=== PATIENT | male | born 1940 | race Caucasian/White ===

== ENCOUNTER 2016-07-26 14:35 | Observation (INO) | payer MEDICARE, OTHER ==
[2016-07-26 15:01] LABS: Hematocrit 33.6 % (42.0-52.0); Hemoglobin 11.4 gm/dL (13.5-18.0); Mean Cell Volume 96.8 fl (78-100); Mean Corpuscular Hemoglobin 32.9 pg (27-31); Mean Corpuscular Hgb Conc 33.9 g/dl (32-36); Mean Platelet Volume 9.6 fl (6.0-9.5); Neutrophil # 2.8 K/mm3 (1.3-6.0); Neutrophil % 55.7 % (42-75.0); Platelet Count 229 K/mm3 (150-450); Red Blood Count 3.47 M/mm3 (4.7-6.0); Red Cell Distribution Width 13.2 % (11.5-14.0); White Blood Count 5.1 K/mm3 (4.0-10.5)
[2016-07-26 15:11] LABS: Albumin * 3.2 gm/dl (3.4-5.0); Anion Gap 19.7 mmol/L (6.8-13.8); BUN/Creatinine Ratio 14.1 (9.0-21.6); Bilirubin, Total 0.3 mg/dL (0.0-1.1); Ca. Corrected For Albumin 9.5 mg/dL (8.4-10.2); Calcium * 9.2 mg/dL (7.9-10.9); Carbon Dioxide 19.5 mmol/L (24-32.6); Potassium 5.2 mmol/L (3.4-4.6); Total Protein 6.3 gm/dL (6.2-8.2)
[2016-07-26] MEDS: NORMAL SALINE 1,000 ML IV ONE ×2 (15:12→17:05)
[2016-07-26 15:14] LABS: Prothrombin Time (Patient) 10.9 Seconds (9.4-11.4)
[2016-07-26 15:15] LABS: INR 1.05 INR (0.90-1.10); Partial Thrombolplastin Time 20.7 Seconds (24-32)
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
--- OUTSIDE RECORDS SUMMARY | 2016-07-26 15:22 | XMS REPORT | Continuity of Care Document ---
:1940 Author Organization [facility] [place] [address] Care Team Providers Name Role Phone Unavailable Primary Care Provider Unavailable Source Comments This disclosure is being made pursuant to the [employer] program and maynot contain all information available regarding this patient.[facility] Active Allergies and Adverse Reactions Not on File Current Medications Be aware that medications may not be up to date as of this document. Alwaysverify current medications with the patient. Not on file Active Problems Not on file Social History Tobacco Use Types Packs/Day Years Used Date Never Assessed Plan of Care Health Maintenance Due Date Last Done Comments Retired-Pertussis Vaccine Adult 1961 Retired-Tetanus Vaccine Adult 1959 Colonoscopy 1992 Well Adult Visit 1992 Zoster Vaccine 60+ 2002 Retired-Pneumococcal 23 Vaccine-65+ yo 11/15/2007 Retired-INFLUENZA VACCINE 10/06/2014 Results from Last 3 Months Not on file
--- OUTSIDE RECORDS SUMMARY | 2016-07-26 15:22 | XMS REPORT | Summary of Care ---
:1940 Author Organization [facility] Address [address] [place] [address]- Care Team Providers Name Role Phone Elio Philip Primary Care Physician Encounter Date(s): 03/31/16 - 03/31/[address] [address] Discharge Disposition: Discharged to Home or Self Care Attending Physician: Solis Arreola MD Admitting Physician: Solis Arreola MD Vital Signs No data available for this section Problem List Condition Effective Dates Status Health Status Informant Cyst of kidney, acquired(Confirmed) Active Acute renal failure(Confirmed) Active Aphasia(Confirmed) Active patient Acquired atrophy of kidney(Confirmed) Active Bradycardia(Confirmed) Active CKD stage 3(Confirmed) Active Coronary artery disease(Confirmed) Active CVA - Cerebrovascular Active accident(Confirmed) Diabetes mellitus type 2(Confirmed) Active Epilepsy(Confirmed) Active Hyperkalemia(Confirmed) Active Hyperlipidemia(Confirmed) Active Hypertension(Confirmed) Active Melanoma(Confirmed) Active Memory deficit(Confirmed) Active patient Moyamoya syndrome(Confirmed) Active Nephrolithiasis(Confirmed) Active COURTNEY - Obstructive sleep apnea - on Active CPAP - NOS(Confirmed) Proteinuria(Confirmed) Active Sleep apnea(Confirmed) Active TIA(Confirmed) Active Allergies, Adverse Reactions, Alerts Substance Reaction Severity Status cyclobenzaprine Unknown Severe Active diltiazem Renal [id number] 19:27:43<$> Severe Active LORazepam Unknown Severe Active metoprolol Renal -[id number] 19:27:43<$> Severe Active Medications amLODIPine 5 mg oral tablet 1 tab(s), Oral, Daily, 0 Refill(s) Special Instructions: patient not taking any longer Start Date: 05/15/13 Stop Date: 12/01/13 Status: Discontinuedaspirin 81 mg oral tablet 1 tab(s), Oral, Daily, 0 Refill(s) Start Date: 05/15/13 Stop Date: 12/04/13 Status: Completedchlorhexidine 0.12% mucous membrane liquid 15 mL, Oral, BID, swish and spit; do not swallow, # 480 mL, 0 Refill(s) Special Instructions: not taking anymore Start Date: 05/30/13 Stop Date: 12/01/13 Status: Discontinuedcholecalciferol 1000 intl units oral tablet 1 tab(s), Oral, Daily, # 30 tab(s), 0 Refill(s), Start Date: 12/14/15 10:40:00 [employer]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 Start Date: 12/14/15 Status: Orderedcholecalciferol 2000 intl units oral capsule 1 cap(s), Oral, Daily, # 60 cap(s), 0 Refill(s) Start Date: 05/15/13 Stop Date: 12/14/15 Status: Completedciprofloxacin 500 mg oral tablet, extended release 1 tab(s), Oral, BID, # 20 tab(s), 0 Refill(s), Pharmacy: [place], [place] Start Date: 10/21/13 Stop Date: 12/04/13 Status: Completedcitalopram 20 mg oral tablet 1 tab(s), Oral, HS, # 30 tab(s), 0 Refill(s) Start Date: 05/28/13 Status: Orderedcitalopram 40 mg oral tablet 1.5 tab(s), Oral, Daily, # 30 tab(s), 0 Refill(s) Start Date: 05/15/13 Stop Date: 12/04/13 Status: Completeddocusate sodium 100 mg oral capsule 1 cap(s), Oral, BID, PRN for constipation, # 20 cap(s), 0 Refill(s) Start Date: 05/15/13 Status: Orderedenalapril 5 mg oral tablet 1 tab(s), Oral, BID, # 30 tab(s), 0 Refill(s) Special Instructions: patient not taking any longer Start Date: 05/15/13 Stop Date: 12/01/13 Status: Discontinuedfamotidine 20 mg oral tablet 1 tab(s), Oral, BID, # 180 tab(s), 0 Refill(s) Start Date: 05/15/13 Status: OrderedFish Oil 1000 mg oral capsule 1 cap(s), Oral, Daily, # 60 cap(s), 0 Refill(s) Start Date: 05/15/13 Status: OrderedFlagyl 500 mg oral tablet 1 tab(s), Oral, every 8 hours, # 30 tab(s), 0 Refill(s), Pharmacy: [place], [place] Start Date: 10/21/13 Stop Date: 12/04/13 Status: CompletedFlomax 0.4 mg oral capsule 1 cap(s), Oral, Daily, # 30 cap(s), 11 Refill(s), Start Date: 06/17/14 13:09:00 CDT, Pharmacy: [place], [place] Start Date: 06/17/14 Stop Date: 05/13/15 Status: CompletedFlomax 0.4 mg oral capsule 1 cap(s), Oral, Daily, # 30 cap(s), 11 Refill(s), Start Date: 05/13/15 11:59:50 CDT, Pharmacy: [place], [place] Start Date: 05/13/15 Status: Orderedgemfibrozil 600 mg oral tablet 1 tab(s), Oral, BID, # 60 tab(s), 0 Refill(s) Start Date: 05/15/13 Status: OrderedHYDROcodone-acetaminophen 10 mg-300 mg/15 mL oral liquid 7.5 mL, Oral, q4hr, PRN for pain, # 240 mL, 0 Refill(s) Start Date: 06/11/13 Stop Date: 09/11/13 Status: CompletedHYDROcodone-acetaminophen 10 mg-300 mg/15 mL oral liquid 7.5 mL, Oral, q4hr, PRN for pain, # 240 mL, 0 Refill(s) Start Date: 05/26/13 Stop Date: 06/11/13 Status: CompletedJanuvia 100 mg oral tablet 1 tab(s), Oral, Daily, # 30 tab(s), 0 Refill(s) Start Date: 05/15/13 Status: OrderedJanuvia 100 mg oral tablet 1 tab(s), Oral, Daily Start Date: 05/31/13 Stop Date: 12/04/13 Status: CompletedlamoTRIgine 25 mg oral tablet 2 tab(s), Oral, BID, # 60 tab(s), 0 Refill(s), Start Date: 12/04/13 11:31:00 CDT Start Date: 12/04/13 Status: OrderedlevETIRAcetam 250 mg oral tablet 1 tab(s), Oral, BID, # 180 tab(s), 0 Refill(s), Start Date: 12/14/15 10:42:00 [employer]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 Start Date: 12/14/15 Status: OrderedlevETIRAcetam 750 mg oral tablet 1 tab(s), Oral, BID, # 180 tab(s), 0 Refill(s), Start Date: 12/01/13 6:48:00 CDT Start Date: 12/01/13 Stop Date: 12/14/15 Status: Completedlisinopril 2.5 mg oral tablet 1 tab(s), Oral, HS, # 30 tab(s), 11 Refill(s), Start Date: 06/30/15 11:27:25 CDT , Pharmacy: [place], [place] Start Date: 06/30/15 Status: Orderedlisinopril 2.5 mg oral tablet 1 tab(s), Oral, HS, # 30 tab(s), 6 Refill(s), Start Date: 12/04/13 14:41:00 CDT , Pharmacy: [place], [place] Start Date: 12/04/13 Stop Date: 05/19/14 Status: Completedlisinopril 2.5 mg oral tablet 1 tab(s), Oral, HS, # 30 tab(s), 6 Refill(s), Start Date: 12/24/14 8:30:46 [employer] MAIN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, Pharmacy: [facility], [place] Start Date: 12/24/14 Stop Date: 06/30/15 Status: Completedlisinopril 2.5 mg oral tablet 1 tab(s), Oral, HS, # 30 tab(s), 6 Refill(s), Start Date: 05/19/14 15:04:24 CDT , Pharmacy: [place], [place] Start Date: 05/19/14 Stop Date: 12/24/14 Status: CompletedMagic Mouthwash (1:1:1:1 viscous lidocaine:Benadryl:Maalox: nystatin) 0 Refill(s) Start Date: 05/30/13 Stop Date: 12/04/13 Status: Discontinuedmultivitamin 1 tab, Daily, with food, 0 Refill(s) Special Instructions: with food Start Date: 05/15/13 Status: OrderedMyrbetriq 25 mg oral tablet, extended release 1 tab(s), Oral, Daily, # 30 tab(s), 11 Refill(s), Start Date: 12/10/14 11:42:00 [employer]IN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, 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[place], [place] Start Date: 12/10/14 Stop Date: 12/24/14 Status: DiscontinuedMyrbetriq 50 mg oral tablet, extended release 1 tab(s), Oral, Daily, # 30 tab(s), 0 Refill(s), Start Date: 12/24/14 14:26:00 [employer] E[employer]MENT MAIN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, Pharmacy: [place], [place] Start Date: 12/24/14 Stop Date: 01/27/15 Status: CompletedMyrbetriq 50 mg oral tablet, extended release 1 tab(s), Oral, Daily, # 30 tab(s), 11 Refill(s), Start Date: 01/27/15 10:18:36 [employer]MENT MAIN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, Pharmacy: [place], [place] Start Date: 01/27/15 Status: OrderedNeutraSal packet(s), Oral, QID, 0 Refill(s) Start Date: 05/30/13 Stop Date: 12/04/13 Status: CompletedPlavix 75 mg oral tablet 1 tab(s), Oral, Daily, # 30 tab(s), 0 Refill(s) Start Date: 05/15/13 Status: Orderedpyridostigmine 60 mg oral tablet 1 tab(s), Oral, Daily, 0 Refill(s), Start Date: 06/08/14 16:36:00 CDT Start Date: 06/08/14 Status: Orderedsimvastatin 80 mg oral tablet 1 tab(s), Oral, HS, # 30 tab(s), 0 Refill(s) Start Date: 05/15/13 Status: OrderedTums 500 1 tab, Chewed, Daily, 0 Refill(s) Start Date: 05/15/13 Status: OrderedZetia 10 mg oral tablet 1 tab(s), Oral, Daily, # 30 tab(s), 0 Refill(s) Start Date: 05/15/13 Status: Ordered Results Patient Viewable Results Most recent to oldest [Reference Range]: 1 Creatinine Lvl [0.50-1.20 mg/dL] 2.48 mg/dL *HI* (03/31/16 9:25 AM) eGFR AA [>=60] 31 *LOW* (03/31/16 9:25 AM) eGFR ROBERT [>=60] 26 *LOW* (03/31/16 9:25 AM) PSA Screen [0.0-4.0 ng/mL] 2.3 ng/mL (03/31/16 9:25 AM) Estimated Creatinine Clearance 33.81 mL/min (03/31/16 9:58 AM) UA Color Yellow *NA* (03/31/16 9:35 AM) Urine Clarity Clear *NA* (03/31/16 9:35 AM) Specific [place] [1.000-1.060] 1.014 (03/31/16 9:35 AM) Urine pH [5-8] 5 (03/31/16 9:35 AM) Ketones Negative (03/31/16 9:35 AM) Bilirubin [Negative] Negative (03/31/16 9:35 AM) Urine Protein [Negative] 3+ *ABN* (03/31/16 9:35 AM) Glucose [Negative] 1+ *ABN* (03/31/16 9:35 AM) Urine HGB [Negative] Negative (03/31/16 9:35 AM) Urobilinogen <2.0 *NA* (03/31/16 9:35 AM) Nitrite [Negative] Negative (03/31/16 9:35 AM) Leuk Esterase [Negative] Negative (03/31/16 9:35 AM) UA Ascorbic Acid [Negative] Negative (03/31/16 9:35 AM) Urine WBC [0-5] 0-5 (03/31/16 9:35 AM) Urine RBC [0-2] 0-2 (03/31/16 9:35 AM) Squamous Epi [0-5] 0-5 (03/31/16 9:35 AM) Mucus Trace (03/31/16 9:35 AM) Immunizations Vaccine Date Refusal Reason influenza virus vaccine, inactivated 11/05/14 influenza virus vaccine, inactivated 11/25/12 pneumococcal 7-valent vaccine 11/25/12 Procedures Procedure Date Related Diagnosis Body Site UDS - Urodynamics 10/26/14 Colonoscopy1 12/01/13 Insertion Percutaneous Gastronomy Tube2 05/30/13 Bypass-temporal artery 07/2002 Temporal artery biopsy 07/2002 Ankle joint operations3 Appendectomy Colonoscopy Neck surgery Operation on neck Operative procedure on shoulder4 Surgery-bilateral shoulder Vasectomy 1auto-populated from documented surgical [id number] from documented surgical [id number] Social History No data available for this section Assessment and Plan No data available for this section
--- OUTSIDE RECORDS SUMMARY | 2016-07-26 16:22 | XMS REPORT | Continuity of Care Document ---
:1940 Author Organization [facility] [place] [address] Care Team Providers Name Role Phone Unavailable Primary Care Provider Unavailable Source Comments This disclosure is being made pursuant to the [employer] program and maynot contain all information available regarding this patient.[facility] Active Allergies and Adverse Reactions Not on [...]
[2016-07-26 16:29] LABS: Troponin I Less than 0.017 ng/ml (0.00-0.10)
[2016-07-26 16:31] LABS: BNP * 139 pg/mL (5-350)
[2016-07-26] MEDS ORDERED: POLYETHYLENE GLYCOL 3350 119 GM BTL PO PRN (17:45)
[2016-07-26] MEDS ORDERED: TAMSULOSIN HCL 0.4 MG CAP.SR.24H PO SCH (19:00)
[2016-07-26] MEDS: ACETAMINOPHEN 325 MG TABLET PO PRN (19:31)
[2016-07-26] MEDS ORDERED: SIMVASTATIN 40 MG TABLET PO SCH (21:00)
[2016-07-26] MEDS: FAMOTIDINE 20 MG TABLET PO SCH (21:11)
[2016-07-26] MEDS: lamoTRIgine 100 MG TABLET PO SCH (21:11)
[2016-07-26] MEDS: GEMFIBROZIL 600 MG TABLET PO SCH (21:15)
[2016-07-26] MEDS ORDERED: NORMAL SALINE 1,000 ML IV PRN (22:36)
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
[2016-07-26] MEDS ORDERED: ENOXAPARIN SODIUM 40 MG/0.4 ML SYRG SC SCH (22:45)
[2016-07-26] MEDS ORDERED: ENOXAPARIN SODIUM 100 MG/ML SYRG SC ONE (22:55)
[2016-07-26] MEDS: levETIRAcetam 500 MG TABLET PO SCH (23:01)
[2016-07-27 06:06] LABS: Hematocrit 26.1 % (42.0-52.0); Hemoglobin 8.7 gm/dL (13.5-18.0); Mean Cell Volume 99.6 fl (78-100); Mean Corpuscular Hemoglobin 33.2 pg (27-31); Mean Corpuscular Hgb Conc 33.3 g/dl (32-36); Mean Platelet Volume 10.1 fl (6.0-9.5); Neutrophil # 7.2 K/mm3 (1.3-6.0); Neutrophil % 88.1 % (42-75.0); Platelet Count 160 K/mm3 (150-450); Red Blood Count 2.62 M/mm3 (4.7-6.0); Red Cell Distribution Width 13.2 % (11.5-14.0); White Blood Count 8.2 K/mm3 (4.0-10.5)
[2016-07-27 06:26] LABS: Albumin * 2.9 gm/dl (3.4-5.0); Anion Gap 17.1 mmol/L (6.8-13.8); BUN/Creatinine Ratio 15.9 (9.0-21.6); Bilirubin, Total 0.2 mg/dL (0.0-1.1); Ca. Corrected For Albumin 9.1 mg/dL (8.4-10.2); Calcium * 8.5 mg/dL (7.9-10.9); Carbon Dioxide 22.5 mmol/L (24-32.6); Potassium 5.6 mmol/L (3.4-4.6); Total Protein 5.7 gm/dL (6.2-8.2)
[2016-07-27] MEDS: ACETAMINOPHEN 325 MG TABLET PO PRN ×2 (06:39→14:07)
[2016-07-27] MEDS ORDERED: LEVOTHYROXINE SODIUM 50 MCG TABLET PO SCH (07:00)
[2016-07-27] MEDS ORDERED: FUROSEMIDE 10 MG/ML VIAL IV STA (07:46)
[2016-07-27 08:08] LABS: Hematocrit 26.8 % (42.0-52.0); Mean Cell Volume 99.6 fl (78-100); Mean Corpuscular Hemoglobin 33.5 pg (27-31); Mean Corpuscular Hgb Conc 33.6 g/dl (32-36); Mean Platelet Volume 9.3 fl (6.0-9.5); Neutrophil # 8.5 K/mm3 (1.3-6.0); Neutrophil % 87.1 % (42-75.0); Platelet Count 174 K/mm3 (150-450); Red Blood Count 2.69 M/mm3 (4.7-6.0); Red Cell Distribution Width 13.3 % (11.5-14.0); White Blood Count 9.8 K/mm3 (4.0-10.5)
[2016-07-27 08:29] LABS: Anion Gap 16.5 mmol/L (6.8-13.8); BUN/Creatinine Ratio 15.3 (9.0-21.6); Calcium * 8.7 mg/dL (7.9-10.9); Carbon Dioxide 20.5 mmol/L (24-32.6); Estimated Creat Clear 23.8
[2016-07-27] MEDS ORDERED: CLOPIDOGREL BISULFATE 75 MG TABLET PO SCH (09:00)
[2016-07-27] MEDS ORDERED: sitaGLIPtin PHOSPHATE 50 MG TABLET PO SCH (09:00)
[2016-07-27] MEDS ORDERED: CITALOPRAM HYDROBROMIDE 20 MG TABLET PO SCH (09:00)
[2016-07-27] MEDS ORDERED: EZETIMIBE 10 MG TABLET PO SCH (09:00)
[2016-07-27] MEDS ORDERED: CHOLECALCIFEROL 1,000 UNIT CAPSULE PO SCH (09:00)
[2016-07-27] MEDS ORDERED: LISINOPRIL 2.5 MG TABLET PO SCH (09:00)
[2016-07-27] MEDS ORDERED: PYRIDOSTIGMINE BROMIDE 60 MG TABLET PO SCH (09:00)
[2016-07-27] MEDS ORDERED: MULTIVITAMINS 1 CAP CAPSULE PO SCH (09:00)
[2016-07-27] MEDS: levETIRAcetam 500 MG TABLET PO SCH (09:02)
[2016-07-27] MEDS: lamoTRIgine 100 MG TABLET PO SCH ×3 (09:02→12:09)
[2016-07-27] MEDS: FAMOTIDINE 20 MG TABLET PO SCH (09:03)
[2016-07-27] MEDS: GEMFIBROZIL 600 MG TABLET PO SCH (09:42)
[2016-07-27 10:31] LABS: Urine Bilirubin Negative (NEGATIVE); Urine Ketone Negative (NEGATIVE); Urine Nitrite Negative (NEGATIVE); Urine Protein >=300 mg/dL (NEGATIVE); Urine Specific Gravity >=1.030 SP.GR. (1.005-1.030); Urine Urobilinogen Normal (NORMAL); Urine pH 5.5 pH (5.0-7.0)
[2016-07-27 10:51] LABS: Urine Amorphous Sediment Few - 1+ (NONE-FEW); Urine Appearance Slightly Cloudy; Urine Bacteria None Seen; Urine Blood 10 /ul (NEGATIVE); Urine Color Yellow; Urine RBC 0-5 /hpf (0-5); Urine WBC None Seen /hpf (0-5)
[2016-07-27] MEDS ORDERED: ASPIRIN 81 MG TAB.CHEW PO STA (11:44)
[2016-07-27] MEDS ORDERED: INSULIN LISPRO 100 UNITS/ML VIAL SC SCH (12:00)
[2016-07-27 12:11] LABS: Hemoglobin 8.2 gm/dL (13.5-18.0)
--- NOTE | 2016-07-27 12:38 | PN ---
Progess Note - Interim Narrative: 07/27/16 12:18 About 1145 today had a 60 second episode of right sided weakness which has now completely passed. I have spoken to the transer center at [facility], as I now think he needs to be transferred for what I interpret as a TIA at 1145. Events yesterday I interpret as seizures. I spoke with Dr. Vogt this morning by phone, who related his creatinine today and yesterday is similar to others this year at Dr. Vogt' office. We did give Mr Shah extra baby aspirin after his TIA today.
[2016-07-27 14:52] VITALS: BP 110/47
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
[2016-07-27 16:03] LABS: Hematocrit 23.5 % (42.0-52.0)
== END 2016-07-27 16:45 | disposition short-term general hospital (02) ==
LOC: ER 14:35 → MS 16:17
PROVIDERS: ADMIT Allergy & Immunology; ATTEND Allergy & Immunology
DX: G45.9 Transient cerebral ischemic attack, unspecified (principal); G40.909 Epilepsy, unspecified, not intractable, without status epilepticus; E11.22 Type 2 diabetes mellitus with diabetic chronic kidney disease; I12.9 Hypertensive chronic kidney disease with stage 1 through stage 4 chronic kidney disease, or unspecified chronic kidney disease; N18.4 Chronic kidney disease, stage 4 (severe); I67.5 Moyamoya disease; I10 Essential (primary) hypertension; Z87.891 Personal history of nicotine dependence; I50.32 Chronic diastolic (congestive) heart failure; F03.90 Unspecified dementia, unspecified severity, without behavioral disturbance, psychotic disturbance, mood disturbance, and anxiety; E78.5 Hyperlipidemia, unspecified; G47.33 Obstructive sleep apnea (adult) (pediatric); I95.0 Idiopathic hypotension; D64.9 Anemia, unspecified; R07.89 Other chest pain; M25.561 Pain in right knee; V43.52XA Car driver injured in collision with other type car in traffic accident, initial encounter; Y92.414 Local residential or business street as the place of occurrence of the external cause
CPT/HCPCS: 36415; 70450; 71010; 73562; 80048; 80053; 81001; 83880; 84484; 85014; 85018; 85025; 85610; 85652; 85730; 93005; 94660; 96372; 96374; 97110; 97116; 97163; 97166; 99283; G0378; G8981; G8982; G8983; G8987; G8988; G8989

== ENCOUNTER 2016-08-04 22:36 | Emergency (ER) | payer MEDICARE, OTHER ==
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
[2016-08-04 23:07] LABS: Mean Cell Volume 97.1 fl (78-100); Mean Corpuscular Hemoglobin 32.7 pg (27-31); Mean Corpuscular Hgb Conc 33.6 g/dl (32-36); Mean Platelet Volume 9.2 fl (6.0-9.5); Platelet Count 296 K/mm3 (150-450); Red Blood Count 2.45 M/mm3 (4.7-6.0); Red Cell Distribution Width 13.1 % (11.5-14.0); White Blood Count 8.9 K/mm3 (4.0-10.5)
[2016-08-04 23:13] LABS: Hematocrit 23.8 % (42.0-52.0)
[2016-08-04 23:23] LABS: Albumin * 2.4 gm/dl (3.4-5.0); Anion Gap 16.9 mmol/L (6.8-13.8); BUN/Creatinine Ratio 14.7 (9.0-21.6); Bilirubin, Total 0.4 mg/dL (0.0-1.1); Ca. Corrected For Albumin 9.8 mg/dL (8.4-10.2); Calcium * 8.8 mg/dL (7.9-10.9); Carbon Dioxide 23.9 mmol/L (24-32.6); Potassium 4.8 mmol/L (3.4-4.6); Total Protein 6.8 gm/dL (6.2-8.2)
[2016-08-04 23:28] LABS: Total Cells Counted 100
[2016-08-04 23:38] LABS: Atypical (Reactive) Lymph 2 % (0-2); Band 6 % (0-2.0); Basophil 1 % (0-1); Eosinophil 1 % (0-3); Immature Granulocyte 1 (0-1); Lymphocyte 9 % (20-51); Monocyte 4 % (0-9); Neutrophil 76 % (42-75); Neutrophil # 6.8 K/mm3 (1.3-6.0)
[2016-08-04 23:40] LABS: Basophilic Stippling Trace; Platelet Estimate Normal (NORMAL)
[2016-08-04 23:41] LABS: Toxic Granulation 1+
[2016-08-04 23:48] LABS: Howell-Jolly Bodies Trace; RBC Morphology Normal (NORMAL)
--- OUTSIDE RECORDS SUMMARY | 2016-08-05 00:23 | XMS REPORT | Continuity of Care Document ---
:1940 Author Organization [employer] [place] [address] Care Team Providers Name Role Phone Unavailable Primary Care Provider Unavailable Source Comments This disclosure is being made pursuant to the [employer] program and maynot contain all information available regarding this patient.[employer] Active Allergies and Adverse Reactions Not on [...]
[2016-08-05 01:08] VITALS: BP 139/86
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
== END 2016-08-05 01:00 | disposition home or self-care (01) ==
LOC: ER 22:36
DX: R50.9 Fever, unspecified (principal); Z85.820 Personal history of malignant melanoma of skin; Z85.89 Personal history of malignant neoplasm of other organs and systems; E11.9 Type 2 diabetes mellitus without complications; R56.9 Unspecified convulsions; I63.9 Cerebral infarction, unspecified

== ENCOUNTER 2017-02-08 11:03 | Emergency (ER) | payer MEDICARE, OTHER ==
[2017-02-08 11:45] LABS: Hematocrit 34.8 % (42.0-52.0); Hemoglobin 11.5 gm/dL (13.5-18.0); Mean Cell Volume 100.3 fl (78-100); Mean Corpuscular Hemoglobin 33.1 pg (27-31); Mean Platelet Volume 8.8 fl (6.0-9.5); Neutrophil # 3.2 K/mm3 (1.3-6.0); Neutrophil % 74.1 % (42-75.0); Platelet Count 140 K/mm3 (150-450); Red Blood Count 3.47 M/mm3 (4.7-6.0); Red Cell Distribution Width 13.4 % (11.5-14.0); White Blood Count 4.3 K/mm3 (4.0-10.5)
[2017-02-08 12:01] LABS: Prothrombin Time (Patient) 10.4 Seconds (9.0-11.0)
[2017-02-08 12:03] LABS: BUN/Creatinine Ratio 15.8 (9.0-21.6)
[2017-02-08 12:04] LABS: Albumin * 3.4 gm/dl (3.4-5.0); Bilirubin, Total 0.3 mg/dL (0.0-1.1); Ca. Corrected For Albumin 9.2 mg/dL (8.4-10.2); INR 1.04 INR (0.90-1.10); Partial Thrombolplastin Time 28.5 Seconds (24-32); Total Protein 6.7 gm/dL (6.2-8.2)
[2017-02-08] MEDS ORDERED: NORMAL SALINE 1,000 ML IV ONE (12:25)
[2017-02-08] MEDS ORDERED: ALBUTEROL SULFATE 2.5 MG/0.5 ML VIAL.NEB IH ONE ×2 (12:26→12:32)
[2017-02-08] MEDS ORDERED: INSULIN REGULAR, HUMAN 100 UNITS/ML VIAL IV ONE (12:26)
[2017-02-08] MEDS ORDERED: DEXTROSE 50%-WATER 50 ML SYRG IV ONE (12:27)
[2017-02-08] MEDS ORDERED: SODIUM POLYSTYRENE SULFON/SORB 15 G/60 ML BTL PO ONE (12:27)
[2017-02-08] MEDS ORDERED: DEXTROSE 50%-WATER 50 ML SYRG ONE (12:32)
[2017-02-08] MEDS ORDERED: SODIUM POLYSTYRENE SULFON/SORB 15 G/60 ML BTL ONE (12:32)
[2017-02-08] MEDS ORDERED: INSULIN REGULAR, HUMAN 100 UNITS/ML VIAL ONE (12:33)
--- NOTE | 2017-02-08 13:10 | ERNOTE ---
Head Injury HPI - Narrative Date of Service: 02/08/17 - General Injury to: head Time Seen by Provider: 02/08/17 11:16 Source: patient, family Exam Limitations: no limitations - Immun/Allergies/Home Medications Immunization: IMMUNIZATION HX Immunizations Up to Date Yes History of Influenza Vaccine Yes Hx Pneumococcal Vaccination Yes Allergies/Adverse Reactions: Allergies Allergy/AdvReac Type Severity Reaction Status Date / Time diazepam [From Valium] Allergy Intermediate WEAKNESS, Verified 02/08/17 11:14 BRADYCARDIA diltiazem Allergy Intermediate WEAKNESS, Verified 02/08/17 11:14 BRADYCARDIA metoprolol Allergy Intermediate WEAKNESS, Verified 02/08/17 11:14 BRADYCARDIA cyclobenzaprine HCl Allergy Unknown Verified 02/08/17 11:14 [From Flexeril] lorazepam Allergy Unknown Verified 02/08/17 11:14 Home Medications: HOME MEDICATIONS Citalopram Hydrobromide [Celexa] 30 mg PO DAILY 02/25/12 [Last Taken 03/10/15] Clopidogrel Bisulfate [Plavix] 75 mg PO DAILY 02/25/12 [Last Taken 03/10/15] Ezetimibe [Zetia] 10 mg PO DAILY 02/25/12 [Last Taken 03/10/15] Gemfibrozil [Lopid] 600 mg PO BID 02/25/12 [Last Taken 03/10/15] Simvastatin 80 mg PO DAILY 02/25/12 [Last Taken 03/10/15] Famotidine 20 mg PO BID 04/27/12 [Last Taken 03/10/15] Levothyroxine Sodium [Synthroid] 88 mcg PO DAILY 09/07/14 [Last Taken 03/10/15] Lisinopril [Zestril] 2.5 mg PO DAILY 09/07/14 [Last Taken 03/10/15] Pyridostigmine [place] [Mestinon] 30 mg PO BID 09/07/14 [Last Taken 03/10/15] Tamsulosin HCl [Flomax] 0.4 mg PO DAILY 12/22/14 [Last Taken 03/10/15] sitaGLIPtin PHOSPHATE [Januvia] 100 mg PO DAILY 12/22/14 [Last Taken 03/10/15] Cholecalciferol (Vitamin D3) [Vitamin D3] 1,000 unit PO DAILY 07/26/16 [Last Taken Unknown] Lamotrigine [Lamictal] 250 mg PO BID 07/26/16 [Last Taken Unknown] Mirabegron [Myrbetriq] 50 mg PO DAILY 07/26/16 [Last Taken Unknown] levETIRAcetam [Levetiracetam] 500 mg PO BID 07/26/16 [Last Taken Unknown] Polyethylene Glycol 3350 [Miralax] 17 gm PO PRN 08/04/16 [Last Taken Unknown] - History of Present Illness Narrative: patient fell with laceratiion too scalp. no loc hx of previous crainotomy Occurred: just prior to arrival Location Occurred: street Severity: mild Head Injury Location: global Method of Injury: Reports: fell Reason for Fall: Reports: slipped Loss of Consciousness: Reports: no loss of consciousness, remembers event Associated Symptoms: Reports: denies symptoms Review of Systems - Narrative Narrative: patient alert and cheerful - Review of Systems Constitutional: Present: See HPI EYE: Present: no symptoms reported ENT: Present: no symptoms reported, pulling on ears Respiratory: Present: no symptoms reported Cardiology: Present: no symptoms reported Gastrointestinal/Abdominal: Present: no symptoms reported Genitourinary: Present: no symptoms reported Musculoskeletal: Present: no symptoms reported Skin: Present: no symptoms reported Neurological: Present: no symptoms reported Endocrine: Present: no symptoms reported Hematologic/Lymphatic: Present: no symptoms reported Psych: Present: no symptoms reported All Other Systems: All systems neg except as marked - Patient's Past Medical History Patient History - Medical: Anemia, Diabetes Type 2, Renal Disease, Renal Failure , Seizures, Other Patient History - Cardiac/Respiratory: CVA/Stroke, CPAP/BiPAP Home Use, Sleep Apnea, Other Patient History - Cancer: Melanoma, Throat Patient History - Surgical Procedures: Appendectomy, Pneumothorax, T & A Patient History - Other: None - Family History Family History:: no untoward family reactions to anesthesia, no familial bleeding tendencies, no family history of clotting disorders, no family history of premature - Family History Mother Family History - Medical: Family History - Cardiac/Respiratory: No pertinent hx, CHF Family History - Cancer: No pertinent family hx Father Family History - Medical: Family History - Cardiac/Respiratory: No pertinent hx Family History - Cancer: No pertinent family hx - Social History Living Situations: spouse Abuse History: No History of abuse Psych History: No pertinent hx, Hx of Anxiety Smoking Status: Former smoker Have you smoked in the past 12 months: No Do you dip or chew tobacco: No Alcohol Use: rarely Drug Use: none - Immunizations Immunizations Up to Date: Yes Hx Pneumococcal Vaccination: Yes History of Influenza Vaccine: Yes Physical Exam - Physical Exam Narrative: patient alert General Appearance: Present: mild distress, anxious Head Exam: Present: normal inspection, no evidence of injury Eye Exam: Normal inspection: bilateral, PERRL: bilateral, EOMI: bilateral, Other : right - scalp laceratiion to top of head 5cm in lenght Ears, Nose, Throat: Present: normal ENT inspection Neck: Present: normal inspection Respiratory: Present: no respiratory distress Peripheral Pulses: N=norm/S=strong/W=weak/B=bound/A=absent: Carotid (R): Normal , Carotid (L): Normal, Radial (R): Normal, Radial (L): Normal, Femoral (R): Normal, Femoral (L): Normal, Dorsalis-pedis (R): Normal, Dorsalis-pedis (L): Normal Gastrointestinal/Abdominal: Present: normal bowel sounds, nontender, nondistended, soft, no organomegaly Back Exam: Present: normal inspection, normal range of motion, no CVA tenderness , no vertebral tenderness Extremity Exam: Present: normal inspection, non-tender, normal range of motion, no edema Neurological Exam: Present: alert, oriented, normal mood/affect, no motor/ sensory deficits DTR: N=norm/NB=norm/brisk/A=abs/DD=dull/dimin/HC=hyperactive: Bicep (R): Normal , Bicep (L): Normal, Tricep (R): Normal, Tricep (L): Normal, Knee (R): Normal, Knee (L): Normal, Ankle (R): Normal Skin Exam: Present: normal color, warm/dry Lymphatic Exam: Present: no adenopathy ED Progress - Date and Time Seen: Date and Time: 02/08/17 13:04 patient improved case discussed with dr bishop serranoig hyperkalemia to be admitted for observation - Results and Orders Patient's Lab Results:: I have reviewed the patient's lab results. - Vital Signs Patient's Vital Signs:: I have reviewed the patient's vital signs. Vital Signs: Vital Signs 02/08/17 02/08/17 11:05 12:47 Pulse Rate 68 61 Respiratory 16 18 Rate Blood Pressure 168/88 O2 Sat by Pulse 98 98 Oximetry - EKG EKG: NSR - CT/Ultrasound CT/Ultrasound Narrative: ct findings unchanged from previous - Progress/Reassessment Chief Complaint: Head Injury Progress:: Improved - Transfer of Care Expected Disposition: Admit Procedures Head Anesthesia: 1% Lidocaine I & D Prep: betadine prep, sterile drapes applied Wound's Depth/Shape: linear Wound Explored: clean Wound Intervention: irrigated w/saline Foreign body identified: other - no foreign Distal NVT: neuro/vasc intact Wound Repaired With: ana - ten ana used Wound Dressing: sterile dressing applied Complications: Pt tian procedure well Plan - Plan Plan: to be admitted Departure Clinical Impression: Hyperkalemia, Laceration of scalp - Departure Disposition: [facility] Condition: Fair Referrals: Elio Bernstein MD [Primary Care Provider] -
[2017-02-08 14:36] LABS: Anion Gap 12.8 mmol/L (6.8-13.8); BUN/Creatinine Ratio 16.3 (9.0-21.6); Calcium * 8.2 mg/dL (7.9-10.9); Carbon Dioxide 22.4 mmol/L (24-32.6); Estimated Creat Clear 25.1; Potassium 4.2 mmol/L (3.4-4.6)
--- NOTE | 2017-02-08 16:12 | CONS ---
HPI - General Date of Service: 02/08/17 Source: patient, old records - History of Present Illness Initial Comments: I was asked to evaluate and possibly admit the patient for hyperkalemia. Allergies/Adverse Reactions: Allergies diazepam [From Valium] Allergy (Intermediate, Verified 02/08/17 11:14) WEAKNESS, BRADYCARDIA diltiazem Allergy (Intermediate, Verified 02/08/17 11:14) WEAKNESS, BRADYCARDIA metoprolol Allergy (Intermediate, Verified 02/08/17 11:14) WEAKNESS, BRADYCARDIA cyclobenzaprine HCl [From Flexeril] Allergy (Unknown, Verified 02/08/17 11:14) lorazepam Allergy (Unknown, Verified 02/08/17 11:14) Home Medications: Home Medications Medication Instructions Recorded Last Taken Citalopram Hydrobromide [Celexa] 30 mg PO DAILY 02/25/12 03/10/15 Clopidogrel Bisulfate [Plavix] 75 mg PO DAILY 02/25/12 03/10/15 Ezetimibe [Zetia] 10 mg PO DAILY 02/25/12 03/10/15 Gemfibrozil [Lopid] 600 mg PO BID 02/25/12 03/10/15 Simvastatin 80 mg PO DAILY 02/25/12 03/10/15 Famotidine 20 mg PO BID 04/27/12 03/10/15 Levothyroxine Sodium [Synthroid] 88 mcg PO DAILY 09/07/14 03/10/15 Lisinopril [Zestril] 2.5 mg PO DAILY 09/07/14 03/10/15 Pyridostigmine [place] [Mestinon] 30 mg PO BID 09/07/14 03/10/15 Tamsulosin HCl [Flomax] 0.4 mg PO DAILY 12/22/14 03/10/15 sitaGLIPtin PHOSPHATE [Januvia] 100 mg PO DAILY 12/22/14 03/10/15 Cholecalciferol (Vitamin D3) 1,000 unit PO DAILY 07/26/16 Unknown [Vitamin D3] Lamotrigine [Lamictal] 250 mg PO BID 07/26/16 Unknown Mirabegron [Myrbetriq] 50 mg PO DAILY 07/26/16 Unknown levETIRAcetam [Levetiracetam] 500 mg PO BID 07/26/16 Unknown Polyethylene Glycol 3350 [Miralax] 17 gm PO PRN 08/04/16 Unknown - Patient's Past Medical History Patient History - Medical: Anemia, Diabetes Type 2, Renal Disease, Renal Failure , Seizures, Other Patient History - Cardiac/Respiratory: CVA/Stroke, CPAP/BiPAP Home Use, Sleep Apnea, Other Patient History - Cancer: Melanoma, Throat Patient History - Surgical Procedures: Appendectomy, Pneumothorax, T & A Patient History - Other: None - Family History Family History:: no untoward family reactions to anesthesia, no familial bleeding tendencies, no family history of clotting disorders, no family history of premature - Family History Mother Family History - Medical: Family History - Cardiac/Respiratory: No pertinent hx, CHF Family History - Cancer: No pertinent family hx Father Family History - Medical: Family History - Cardiac/Respiratory: No pertinent hx Family History - Cancer: No pertinent family hx - Social History Living Situations: spouse Abuse History: No History of abuse Psych History: No pertinent hx, Hx of Anxiety Smoking Status: Former smoker Have you smoked in the past 12 months: No Do you dip or chew tobacco: No Alcohol Use: rarely Drug Use: none - Immunizations Immunizations Up to Date: Yes Hx Pneumococcal Vaccination: Yes History of Influenza Vaccine: Yes Procedures ANESTH INJECT-SPIN CANAL (09/05/11) CLOSED ENDOSCOPIC BIOPSY OF LARGE INTESTINE (05/25/04) COLONOSCOPY (03/16/02) ESOPHAGOGASTRODUODENOSCOPY [EGD] W/CLOSED BIOPSY (03/16/02) INJECT STEROID (09/05/11) IRRIGATION OF EAR (03/07/05) ROTATOR CUFF REPAIR (12/28/98) SHOULDER ARTHROPLAST NEC (12/28/98) SHOULDER ARTHROSCOPY (10/22/98) SPINAL CANAL INJECT NEC (09/05/11) Review of Systems - Review of Systems Cardiac: Absent: Chest Pain, Palpitations Physical Examination - Exam Vital Signs: Vital Signs - Last Taken Temp 36.5 C 02/08/17 15:13 Pulse 75 02/08/17 15:13 Resp 18 02/08/17 15:13 BP 126/59 02/08/17 15:13 Pulse Ox 97 02/08/17 15:13 O2 Oxygen Delivery Method Room Air Constitutional: Present: Alert, Cooperative, No distress Respiratory: Present: no respiratory distress, no accessory muscle use Skin Exam: Present: warm/dry Neurologic: Present: oriented x 3 Eye contact: Present: cooperative, good eye contact Thoughts: Present: normal thought pattern, no apparent hallucination - Results and Findings: Narrative: The patient was originally going to be admitted for hyperkalemia and was given treatment for hyperkalemia in the ED. However, I rechecked his potassium which is now WNL. The patient's hyperkalemia is secondary to his CKD. The patient has a history of CKD and has chronically elevated or a high normal potassium level at baseline. There is no indication for the patient to be admitted for hyperkalemia as his potassium is now WNL. 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 Lab/Microbiology results last 24 hrs: Abnormal/Pending Laboratory Last 24 HRS 02/08/17 02/08/17 02/08/17 14:21 11:40 11:40 RBC 3.47 L Hgb 11.5 L Hct 34.8 L MCV 100.3 H MCH 33.1 H Plt Count 140 L Immature Gran % (Auto) 0.50 H Lymphocytes % 15.6 L Lymphocytes # 0.7 L Potassium 6.0 H D Chloride 109 H 108 H Carbon Dioxide 22.4 L BUN 46 H 47 H Creatinine 2.83 H 2.97 H Est GFR (Non-Af Amer) 23 L 22 L Random Glucose 141 H D ALT 18 L - Assessments/Findings (1) CKD (chronic kidney disease), stage IV Problem: Chronic (2) Hyperkalemia Problem: Chronic
[2017-02-08 17:05] VITALS: BP 130/61
== END 2017-02-08 16:40 | disposition home or self-care (01) ==
LOC: ER 11:03 → UNDOADMOB 13:02 → MS 13:02 → ER 13:30
PROC: 0HQ0XZZ Repair Scalp Skin, External Approach (ICD-10-PCS; principal; 2017-02-08)
DX: Z87.891 Personal history of nicotine dependence; E11.9 Type 2 diabetes mellitus without complications; E78.5 Hyperlipidemia, unspecified; Y92.414 Local residential or business street as the place of occurrence of the external cause; Z85.820 Personal history of malignant melanoma of skin; Z85.818 Personal history of malignant neoplasm of other sites of lip, oral cavity, and pharynx; S01.01XA Laceration without foreign body of scalp, initial encounter; W01.0XXA Fall on same level from slipping, tripping and stumbling without subsequent striking against object, initial encounter

== ENCOUNTER 2018-06-08 11:02 | Observation (INO) ==
[2018-06-08 11:29] LABS: Hematocrit 27.1 % (42.0-52.0); Hemoglobin 9.2 gm/dL (13.5-18.0); Mean Cell Volume 101.5 fl (78-100); Mean Corpuscular Hemoglobin 34.5 pg (27-31); Mean Corpuscular Hgb Conc 33.9 g/dl (32-36); Neutrophil # 6.4 K/mm3 (1.3-6.0); Neutrophil % 84.4 % (42-75.0); Platelet Count 206 K/mm3 (150-450); Red Blood Count 2.67 M/mm3 (4.7-6.0); Red Cell Distribution Width 13.9 % (11.5-14.0); White Blood Count 7.6 K/mm3 (4.0-10.5)
[2018-06-08 11:39] LABS: Albumin * 2.9 gm/dl (3.4-5.0); Anion Gap 19.1 mmol/L (6.8-13.8); BUN/Creatinine Ratio 10.5 (9.0-21.6); Bilirubin, Total 0.3 mg/dL (0.0-1.1); Ca. Corrected For Albumin 10.1 mg/dL (8.4-10.2); Calcium * 9.5 mg/dL (7.9-10.9); Potassium 4.1 mmol/L (3.4-4.6); Total Protein 6.6 gm/dL (6.2-8.2)
[2018-06-08] MEDS ORDERED: NORMAL SALINE 500 ML IV ONE (14:02)
[2018-06-08 14:20] LABS: Urine Appearance Slightly Cloudy (CLEAR); Urine Bilirubin Negative (NEGATIVE); Urine Blood 5 /ul (NEGATIVE); Urine Color Yellow; Urine Ketone Negative (NEGATIVE); Urine Nitrite Negative (NEGATIVE); Urine Protein >=300 mg/dL (NEGATIVE); Urine Specific Gravity 1.025 SP.GR. (1.005-1.030); Urine Urobilinogen Normal (NORMAL); Urine pH 5.5 pH (5.0-7.0)
[2018-06-08 14:21] LABS: Urine Bacteria TRACE; Urine RBC 0-5 /hpf (0-5); Urine WBC 0-5 /hpf (0-5)
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
[2018-06-08] MEDS: NORMAL SALINE 1,000 ML IV PRN (15:12)
[2018-06-08 18:13] LABS: Hematocrit 26.5 % (42.0-52.0); Hemoglobin 8.7 gm/dL (13.5-18.0); Mean Cell Volume 101.9 fl (78-100); Mean Corpuscular Hemoglobin 33.5 pg (27-31); Mean Corpuscular Hgb Conc 32.8 g/dl (32-36); Neutrophil # 6.3 K/mm3 (1.3-6.0); Neutrophil % 81.3 % (42-75.0); Platelet Count 190 K/mm3 (150-450); Red Cell Distribution Width 13.9 % (11.5-14.0); White Blood Count 7.8 K/mm3 (4.0-10.5)
[2018-06-08 18:26] LABS: Albumin * 2.8 gm/dl (3.4-5.0); Anion Gap 19.1 mmol/L (6.8-13.8); Bilirubin, Total 0.3 mg/dL (0.0-1.1); Calcium * 9.4 mg/dL (7.9-10.9); Carbon Dioxide 18.8 mmol/L (24-32.6); Potassium 3.9 mmol/L (3.4-4.6); Total Protein 6.5 gm/dL (6.2-8.2)
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
[2018-06-09] MEDS: NORMAL SALINE 1,000 ML IV PRN (03:03)
[2018-06-09 12:17] LABS: BUN/Creatinine Ratio 10.7 (9.0-21.6)
[2018-06-09 12:18] LABS: Albumin * 2.4 gm/dl (3.4-5.0); Anion Gap 16.4 mmol/L (6.8-13.8); Bilirubin, Total 0.2 mg/dL (0.0-1.1); Ca. Corrected For Albumin 8.9 mg/dL (8.4-10.2); Calcium * 7.9 mg/dL (7.9-10.9); Carbon Dioxide 17.5 mmol/L (24-32.6); Potassium 3.9 mmol/L (3.4-4.6)
--- NOTE | 2018-06-09 17:39 | DS ---
(1) CKD (chronic kidney disease) stage 5, GFR less than 15 ml/min Problem: Acute (2) Acute renal failure Problem: Acute Description of Stay: Amado is a 77 yo male with CKD Stage 5 currently being set up for peritoneal dialysis. He has not begun dialysis yet. He was admitted for worsening lightheadedness and presyncope. His creatinine was higher than usual, but he did not have significant electrolyte abnormalities. He was admitted to observation over night and given IV fluids. His symptoms improved and he felt able for home discharge. Procedures Performed: none Results and Findings: Lab Pending Results 06/08/18 11:22: WBC 7.6, RBC 2.67 L, Hgb 9.2 L, Hct 27.1 L, MCV 101.5 H, MCH 34.5 H, MCHC 33.9, RDW 13.9, Plt Count 206, MPV 9.0, Immature Gran % (Auto) 0.80 H, Immature Gran # (Auto) 0.06 H, Neutrophils % 84.4 H, Lymphocytes % 8.3 L, Monocytes % 4.5, Eosinophils % 1.7, Basophils % 0.3, Nucleated RBC % 0.0, Neutrophils # 6.4 H, Lymphocytes # 0.63 L, Monocytes # 0.3, Eosinophils # 0.1, Absolute Basophils 0.0 06/08/18 11:22: Sodium 143 H, Plasma Sodium 143 H, Potassium 4.1, Chloride 109 H, Carbon Dioxide 19.0 L, Anion Gap 19.1 H, BUN 55 H, Creatinine 5.25 H, Est GFR (Non-Af Amer) 11 L, BUN/Creatinine Ratio 10.5, Random Glucose 110, Calcium 9.5, Calcium Adj for Albumin 10.1, Total Bilirubin 0.3, AST 18, ALT 17 L, Alkaline Phosphatase 102, Total Protein 6.6, Albumin 2.9 L 06/08/18 13:52: Urine Color Yellow, Urine Appearance Slightly cloudy, Urine pH 5.5, Ur Specific [place] 1.025, Urine Protein >=300 H, Urine Glucose (UA) Negat robert, Urine Ketones Negative, Urine Blood 5 H, Urine Nitrate Negative, Urine Bilirubin Negative, Prot Sulfosalicylic Acd 4+ H, Urine Urobilinogen Normal, Ur Leukocyte Esterase Negative, Urine RBC 0-5, Urine WBC 0-5, Ur Epithelial Cells 0-5, Urine Bacteria Trace, Urine Culture Comments No culture indicated 06/08/18 17:58: WBC 7.8, RBC 2.60 L, Hgb 8.7 L, Hct 26.5 L, MCV 101.9 H, MCH 33.5 H, MCHC 32.8, RDW 13.9, Plt Count 190, MPV 9.0, Immature Gran % (Auto) 1.20 H, Immature Gran # (Auto) 0.09 H, Neutrophils % 81.3 H, Lymphocytes % 11.2 L, Monocytes % 4.5, Eosinophils % 1.5, Basophils % 0.3, Nucleated RBC % 0.0, Neutrophils # 6.3 H, Lymphocytes # 0.87 L, Monocytes # 0.4, Eosinophils # 0.1, Absolute Basophils 0.0 06/08/18 17:58: Sodium 142, Plasma Sodium 142, Potassium 3.9, Chloride 108 H, Carbon Dioxide 18.8 L, Anion Gap 19.1 H, BUN 55 H, Creatinine 4.98 H, Est GFR (Non-Af Amer) 12 L, BUN/Creatinine Ratio 11.0, Random Glucose 131 H, Calcium 9.4, Calcium Adj for Albumin 10.0, Total Bilirubin 0.3, AST 14, ALT 17 L, Alkaline Phosphatase 94, Total Protein 6.5, Albumin 2.8 L 06/09/18 11:42: Sodium 138, Plasma Sodium 138, Potassium 3.9, Chloride 108 H, Carbon Dioxide 17.5 L, Anion Gap 16.4 H, BUN 45 H, Creatinine 4.22 H D, Est GFR (Non-Af Amer) 15 L D, BUN/Creatinine Ratio 10.7, Random Glucose 102, Calcium 7.9, Calcium Adj for Albumin 8.9, Total Bilirubin 0.2, AST 14, ALT 14 L, Alkaline Phosphatase 92, Total Protein 6.0 L, Albumin 2.4 L Discharge Location: Home Disposition: Home self-care Condition: Stable Discharge Activity: Activity as tolerated Discharge Diet: General/regular food Referrals: Elio Bernstein MD [Primary Care Provider] - One Week Problem Oriented Discharge Instructions to Patient/Family: Acute Kidney Injury Additional Patient Instructions (free text): [facility] Home Health at discharge. Please fax and call report. Complete Home Medications List: Complete Home Medication List: Tamsulosin HCl [Flomax] 0.4 mg PO DAILY 12/22/14 Mirabegron [Myrbetriq] 50 mg PO DAILY 07/26/16 Polyethylene Glycol 3350 [Miralax] 17 gm PO DAILY PRN 08/04/16 Acetaminophen [Tylenol] 650 mg PO Q6H PRN 05/09/17 Docusate Sodium 100 mg PO HS PRN 05/09/17 selenium 200 mcg tablet 200 mcg PO DAILY #30 tab 01/01/18 ezetimibe 10 mg tablet 10 mg PO DAILY #30 tab 02/14/18 clopidogrel 75 mg tablet 75 mg PO DAILY #30 tab 02/18/18 famotidine 20 mg tablet 20 mg PO BID #60 tab 03/08/18 gemfibrozil 600 mg tablet 600 mg PO BID #60 tab 03/08/18 multivitamin tablet 1 tab PO BID #60 tab 03/08/18 patiromer calcium sorbitex 8.4 gram oral powder packet 8.4 g PO DAILY 03/15/18 ferrous sulfate 325 mg (65 mg iron) tablet 325 mg PO BID #60 tab 03/29/18 lamotrigine 25 mg tablet 25 mg PO BID #60 tab 04/09/18 levetiracetam 250 mg tablet 250 mg PO Q12H #60 tab 04/09/18 lamotrigine 100 mg tablet 250 mg PO BID #60 tab 04/10/18 carvedilol 3.125 mg tablet 3.125 mg PO .QD tab 05/16/18 lidocaine 4 % topical patch 1 patch TP DAILY #30 ea 05/16/18 amlodipine 10 mg tablet 10 mg PO DAILY #90 tab 05/17/18 levothyroxine 100 mcg tablet 100 mcg PO DAILY #90 tab 05/17/18 Citalopram Hydrobromide [Celexa] 20 mg PO DAILY 06/08/18 Pyridostigmine [place] [Mestinon] 60 mg PO DAILY 06/08/18
[2018-06-09 18:04] VITALS: BP 165/72
== END 2018-06-09 18:04 | disposition home or self-care (01) ==
LOC: ER 11:02 → MS 14:33 → INTOOBSV 14:33 → MS 15:13
PROVIDERS: ADMIT Family Medicine; ATTEND Family Medicine
CPT/HCPCS: 36415; 71020; 71046; 74019; 74020; 80053; 81001; 85025; 93005; 94660; 96360; 96361; 99285; G0378